=== PATIENT | female | born 1995 | race Caucasian/White ===

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

== ENCOUNTER 2023-11-25 15:12 | Inpatient (IN) | payer BC ==
[~2023-11-25] VITALS: Ht 170.2 cm; Wt 60.8 kg
[~2023-11-25 15:12] MED LIST: CIPRO 500MG TA500 MG PO; ZOFRAN ODT4 MG PO
[2023-11-25] MEDS ORDERED: Morphine 4 MG/ML VIAL IV PRN ×2 (17:00→20:00)
[2023-11-25] MEDS ORDERED: Ondansetron 4 MG/2 ML VIAL IV ONE (17:00)
[2023-11-25] MEDS ORDERED: LR 1,000 ML IV ONE (17:00)
[2023-11-25 17:22] LABS: BASO # 0.1 K/mm3 (0.0-0.2); BASO % 0.5 % (0.0-2.0); EOS % 0.2 % (0.0-4.0); GRAN # 11.3 K/mm3 (1.4-6.5); HEMATOCRIT 45.8 % (37.0-47.0); HEMOGLOBIN 15.5 g/dl (12.5-16.0); LYMPH # 1.1 K/mm3 (1.2-3.4); LYMPH % 8.1 % (20.0-51.0); MEAN CELL VOLUME 81 fl (80.0-100.0); MEAN CORPUSCULAR HEMOGLOBIN 27 pg (27-31); MEAN CORPUSCULAR HGB CONC 34 g/dl (33.0-37.0); MEAN PLATELET VOLUME 9.7 fl (7.4-10.4); MONO # 0.6 K/mm3 (0.1-0.6); MONO % 4.8 % (1.7-9.3); PLATELET COUNT 507 K/mm3 (130-400); RED BLOOD COUNT 5.68 M/mm3 (4.10-5.30); REDCELL DISTRIBUTION WIDTH-CV 13.5 % (11.5-14.5)
[2023-11-25 17:32] LABS: ALBUMIN 4.7 g/dL (3.5-5.0); BILIRUBIN,TOTAL 0.7 mg/dL (0.2-1.2); CALCIUM 10.5 mg/dL (8.4-10.2); CREATININE, serum 0.83 mg/dL (0.57-1.11); POTASSIUM 3.9 mEq/L (3.5-4.5); TOTAL PROTEIN 8.7 g/dl (6.2-8.1)
[2023-11-25] MEDS ORDERED: Iohexol 300 - 100 ML VIAL IV ONE (18:31)
[2023-11-25] MEDS ORDERED: NS 50 ML IV ONE (18:42)
[2023-11-25 19:02] LABS: COLLECTION METHOD CLEAN CATCH; URINE APPEARANCE Cloudy (CLEAR/HAZY); URINE BLOOD 1+ (NEGATIVE); URINE COLOR YELLOW (YELLOW); URINE GLUCOSE Negative (NEGATIVE); URINE KETONE 4+ (NEGATIVE); URINE NITRATE Negative (NEGATIVE); URINE PROTEIN(semi-quant) Negative (NEGATIVE); URINE UROBILINOGEN 0.2 E.U/dL (0.2-1.0)
[2023-11-25] MEDS ORDERED: Haloperidol Lactate 5 MG/ML VIAL IV ONE (19:30)
[2023-11-25] MEDS ORDERED: metroNIDAZOLE 100 ML IV ONE (19:45)
[2023-11-25] MEDS ORDERED: Pantoprazole 40 MG in NS 10 ML IV SCH (19:51)
[2023-11-25] MEDS ORDERED: Ondansetron 4 MG/2 ML VIAL IV PRN (20:00)
[2023-11-25] MEDS ORDERED: LR 1,000 ML IV SCH (20:00)
[2023-11-25] MEDS ORDERED: LORazepam 2 MG/ML 1 ML VIAL IV PRN (20:30)
[2023-11-25] MEDS ORDERED: IMURAN 50MG TAB50 MG PO (20:40)
[2023-11-25] MEDS ORDERED: ENTOCORT EC3 MG PO (20:41)
[2023-11-25] MEDS ORDERED: metroNIDAZOLE 100 ML IV SCH (21:00)
[2023-11-25] MEDS ORDERED: Metoprolol Tartrate 5 MG/5 ML VIAL IV PRN (21:30)
[2023-11-25 21:43] VITALS: BP 123/78; PULSE 108; TEMP 97.7
--- NOTE | 2023-11-25 21:48 | NUR ---
Pt. arrived to unit via w/c accompanied by ED RN. Pt. ambulated from chair to bed. Gait is steady. Pt. is on room air. NG tube to R nare at 61 cm. This nurse assessed NG tube was at correct marker before connecting to LIS. Physical assessment complete. Pt. is A&O x4. Pale in coloring, but warm and dry. Pt. is tachycardic at this time w/ HR at 110 bpm. monitor car operator in place. Pt's bowel sounds are audible in all quadrants, however R quadrants are quieter than the left quadrants. Pt. denies nausea at this time. All other findings WNL. Administered scheduled meds per JUN. IV site to L a/c is patent and dressing is CDI. Oriented pt to room and call light. No complaints or requests at this time.
[2023-11-25] MEDS ORDERED: ZOFRAN ODT4 MG PO (21:54)
[2023-11-26] VITALS (12 sets, daily range): BP systolic 103–116; BP diastolic 62–73; PULSE 81–105; TEMP 97.7–98.6
--- NOTE | 2023-11-26 05:49 | NUR ---
Pt. resting in bed since admission. NG tube at 61 cm to LIS. Approximately 150 mL dark red gastric contents. Pt. denies pain or nausea. Coloring has improved since initial assessment and pt. appears more energetic as well. Pt. is on room air and ambulates independently. No complaints or request at this time.
[2023-11-26 06:41] LABS: BASO % 0.5 % (0.0-2.0); EOS # 0.1 K/mm3 (0.0-0.7); EOS % 0.9 % (0.0-4.0); GRAN # 3.9 K/mm3 (1.4-6.5); GRAN % 71.2 % (42.2-75.2); LYMPH % 17.5 % (20.0-51.0); MEAN CELL VOLUME 81 fl (80.0-100.0); MEAN CORPUSCULAR HGB CONC 34 g/dl (33.0-37.0); MEAN PLATELET VOLUME 9.3 fl (7.4-10.4); MONO # 0.5 K/mm3 (0.1-0.6); MONO % 9.7 % (1.7-9.3); REDCELL DISTRIBUTION WIDTH-CV 13.7 % (11.5-14.5)
[2023-11-26 06:46] LABS: HEMOGLOBIN 11.4 g/dl (12.5-16.0); MEAN CORPUSCULAR HEMOGLOBIN 27 pg (27-31); PLATELET COUNT 306 K/mm3 (130-400)
[2023-11-26 07:03] LABS: CALCIUM 8.7 mg/dL (8.4-10.2); CREATININE, serum 0.68 mg/dL (0.57-1.11); POTASSIUM 3.8 mEq/L (3.5-4.5)
--- NOTE | 2023-11-26 07:37 | NUR ---
Pt laying in bed. Denies needs at this time. NG tube to LIS with dark fluid in tubing. Denies needs at this time. Call light in reach.
--- NOTE | 2023-11-26 08:20 | NUR ---
Pt laying in bed. A&Ox4. VSS. S1S2. Clear lungs on RA. ABd round, soft, non-tender with hypoactive bowel sounds. Palpable pulses in all extremities. NG tube at 61cm in R nare on LIS with dark brown fluid in tube. Tele on. No IV in L AC wiht LR at 150 cc/hr. No further needs. Call light in reach.
--- NOTE | 2023-11-26 09:20 | NUR ---
Radiology notified this RN, NG tube was sitting in Pt's esophagus and needed to be advanced about 8 cm. This housing assistant NG tube to 75 cm. Pt tolerated procedure well. NG tube on LIS. No further needs. Call light in reach.
--- NOTE | 2023-11-26 13:48 | NUR ---
[employer] met with patient and her , Jeff (ph#[phone]) to complete initial intake. Patient lives in [place], [place] and sees Dr. Stafford for primary care. Patient gets her medications from [facility] in [place]. Patient advised her insurance is through her father's employer. Patient is employed and works at [employer] in [place]. Patient has no DME needs and is independent with ADLS at this time. Patient does not have DPOA-HC and was not interested in completing one. Discharge Plan: Home
[2023-11-26] MEDS ORDERED: Benzonatate 100 MG CAP PO SCH (16:35)
[2023-11-26] MEDS ORDERED: Menthol Cough/Sore Throat LOZENGE MM PRN (16:45)
[2023-11-26] MEDS ORDERED: Phenol 1.4% Spray 180 ML BOTTLE MM PRN (17:15)
[2023-11-27] VITALS (13 sets, daily range): BP systolic 109–119; BP diastolic 68–77; PULSE 87–95; TEMP 98.1–98.7
--- NOTE | 2023-11-27 06:35 | NUR ---
Pt sleeping in bed. Call light in reach.
[2023-11-27 06:43] LABS: BASO % 0.2 % (0.0-2.0); EOS # 0.1 K/mm3 (0.0-0.7); EOS % 2.4 % (0.0-4.0); GRAN # 4.6 K/mm3 (1.4-6.5); GRAN % 76.9 % (42.2-75.2); LYMPH # 0.8 K/mm3 (1.2-3.4); LYMPH % 13.1 % (20.0-51.0); MEAN CELL VOLUME 82 fl (80.0-100.0); MEAN CORPUSCULAR HEMOGLOBIN 27 pg (27-31); MEAN CORPUSCULAR HGB CONC 33 g/dl (33.0-37.0); MEAN PLATELET VOLUME 9.1 fl (7.4-10.4); MONO # 0.4 K/mm3 (0.1-0.6); MONO % 7.1 % (1.7-9.3); PLATELET COUNT 246 K/mm3 (130-400); RED BLOOD COUNT 4.09 M/mm3 (4.10-5.30); REDCELL DISTRIBUTION WIDTH-CV 13.8 % (11.5-14.5)
[2023-11-27 06:45] LABS: HEMATOCRIT 33.5 % (37.0-47.0)
[2023-11-27 06:57] LABS: CALCIUM 8.8 mg/dL (8.4-10.2); CREATININE, serum 0.66 mg/dL (0.57-1.11); POTASSIUM 3.8 mEq/L (3.5-4.5)
--- NOTE | 2023-11-27 08:10 | NUR ---
Pt sitting up in bed. A&Ox4. VSS. S1S2 on tele. Clear lungs on RA. ABD flat, soft, non-tender with audible bowel sounds. NG tube at 75 cm on LIS with yellow drainage. NG tube in R nare. Palpable pulses in all extremities. IV in L AC patent. Pt denies pain, n/v. No further needs at this time. Call light in reach.
--- NOTE | 2023-11-27 13:53 | NUR ---
Clamped Pt's NG tube. Offerred clear liquids. Educated Pt to notify RN if starting to feel n/v, pain. No further needs. Call light in reach.
--- NOTE | 2023-11-27 20:34 | NUR ---
Patient is doing fine, assessed at this time, see shift assessment, denies pain or discomfort, denies N/V, still with IV infusing well on left antecubital, NG still clamped, denies further needs, call light and personal items within reach, will continue to monitor.
--- NOTE | 2023-11-27 23:50 | NUR ---
Patient resting in bed, looks comfortable, respirations even and unlabored.
[2023-11-28] VITALS (12 sets, daily range): BP systolic 103–121; BP diastolic 65–79; PULSE 82–96; TEMP 98–98.8
[2023-11-28 07:17] LABS: CREATININE, serum 0.66 mg/dL (0.57-1.11); POTASSIUM 3.9 mEq/L (3.5-4.5)
[2023-11-28 07:21] LABS: BASO % 0.4 % (0.0-2.0); EOS # 0.2 K/mm3 (0.0-0.7); EOS % 3.4 % (0.0-4.0); GRAN # 3.3 K/mm3 (1.4-6.5); GRAN % 69.5 % (42.2-75.2); HEMOGLOBIN 10.8 g/dl (12.5-16.0); LYMPH # 0.8 K/mm3 (1.2-3.4); LYMPH % 17.7 % (20.0-51.0); MEAN CELL VOLUME 83 fl (80.0-100.0); MEAN CORPUSCULAR HEMOGLOBIN 28 pg (27-31); MEAN CORPUSCULAR HGB CONC 34 g/dl (33.0-37.0); MEAN PLATELET VOLUME 9.5 fl (7.4-10.4); MONO # 0.4 K/mm3 (0.1-0.6); MONO % 8.4 % (1.7-9.3); PLATELET COUNT 262 K/mm3 (130-400); RED BLOOD COUNT 3.87 M/mm3 (4.10-5.30); REDCELL DISTRIBUTION WIDTH-CV 13.7 % (11.5-14.5)
--- NOTE | 2023-11-28 08:00 | NUR ---
PT AWAKE AND RESTING IN BED. SCHEDULED MEDS GIVEN PER eMAR. NG TUBE IN R NARE, CLAMPED. DENIES PAIN OR TENDERNESS IN ABDOMEN. GLASSES IN PLACE. PT DENIES PAIN. ALL NEEDS MET AT THIS TIME. CALL LIGHT WITHIN REACH.
[2023-11-28] MEDS ORDERED: D5 1/2 NS 1,000 ML IV SCH (09:00)
--- NOTE | 2023-11-28 18:16 | NUR ---
This nurse reveiwed all documentation completed by MARIA ESTHER Kirkpatrick. Agree with all assessments and notes.
--- NOTE | 2023-11-28 18:22 | NUR ---
PT AWAKE AND RESTING IN BED. DENIES PAIN. NG TUBE IN PLACE AND CLAMPED IN RIGHT NARE. NO FURTHER CONCERNS. CALL LIGHT WITHIN REACH.
--- NOTE | 2023-11-28 18:37 | NUR ---
NORMA Torres was notified of tachycardia. This RN went to [facility] on Pt. Pt was in bathroom, ambulating. Pt returned to NSR after sitting down.
--- NOTE | 2023-11-28 19:36 | NUR ---
Called Tam, the MICROBIOLOGY LAB ANALYST and made him aware that patient is having headache, received an order for tylenol.
[2023-11-28] MEDS ORDERED: Acetaminophen 500 MG TAB PO PRN (19:45)
--- NOTE | 2023-11-28 21:05 | NUR ---
Patient assessed at this time, see shift assessment, reports relief from headache, still with IV infusing well on left antecubital, D5NS at 100cc/hr, denies pain, N/V, NG still clamped, denies further needs, call light and personal items within reach, will continue to monitor.
[2023-11-29] VITALS (11 sets, daily range): BP systolic 103–115; BP diastolic 63–74; PULSE 80–116; TEMP 97.8–98.8
--- NOTE | 2023-11-29 05:42 | NUR ---
Patient had an uneventful night, denies need at this time, still with NG clamped on her right nare.
--- NOTE | 2023-11-29 06:35 | NUR ---
Pt sitting up in bed. Denies needs at this time. Call light in reach.
[2023-11-29 06:54] LABS: BASO % 0.5 % (0.0-2.0); EOS # 0.3 K/mm3 (0.0-0.7); EOS % 4.1 % (0.0-4.0); GRAN # 4.4 K/mm3 (1.4-6.5); GRAN % 71.4 % (42.2-75.2); HEMOGLOBIN 11.6 g/dl (12.5-16.0); LYMPH # 0.9 K/mm3 (1.2-3.4); LYMPH % 14.6 % (20.0-51.0); MEAN CELL VOLUME 80 fl (80.0-100.0); MEAN CORPUSCULAR HEMOGLOBIN 27 pg (27-31); MEAN CORPUSCULAR HGB CONC 34 g/dl (33.0-37.0); MEAN PLATELET VOLUME 9.4 fl (7.4-10.4); MONO # 0.6 K/mm3 (0.1-0.6); MONO % 9.2 % (1.7-9.3); PLATELET COUNT 255 K/mm3 (130-400); RED BLOOD COUNT 4.27 M/mm3 (4.10-5.30); REDCELL DISTRIBUTION WIDTH-CV 13.5 % (11.5-14.5)
[2023-11-29 07:04] LABS: HEMATOCRIT 34.2 % (37.0-47.0)
[2023-11-29 07:14] LABS: ANION GAP 10 mmol/L (7-16); CHLORIDE 107 mEq/L (98-107); CREATININE, serum 0.71 mg/dL (0.57-1.11); GLUCOSE 107 mg/dL (70-99); POTASSIUM 3.4 mEq/L (3.5-4.5); SODIUM 140 mEq/L (136-145)
[2023-11-29 07:15] LABS: BLOOD UREA NITROGEN < 5 mg/dL (7-19)
--- NOTE | 2023-11-29 07:33 | NUR ---
Pt laying in bed. A&Ox4. VSS. S1S2. Clear lungs on RA. ABd flat, soft, non-tender with audible bowel sounds. Per Pt, positive flatus. NG tube in R nare. NG tube at 62 cm. Pt requested not to advance tube back down, unless absolutely necessary. Discussed with Pt, if she begins to feel bloated, n/v, or increased pain in ABD, then we would need to advance tube. Palpable pulses in all extremities with 5/5 strength. IV in L AC, no issues, D5 1/2 NS running at 100 cc/hr. Pt denies pain, n/v, headache at this time. No further needs. Call light in reach.
[2023-11-29] MEDS ORDERED: D5 1/2 NS & 20 mEq KCl 1,000 ML IV SCH (09:30)
[2023-11-29 11:01] LABS: MAGNESIUM 1.9 mg/dL (1.6-2.6); PHOSPHOROUS 3.7 mg/dL (2.3-4.7)
--- NOTE | 2023-11-29 12:52 | NUR ---
This RN was notified by [employer]. Pt's HR increased to 130s-150s. Pt sitting in bed eating. Pt reported feeling some throat pain but nothing new. Administered throat spray for comfort. Notified provider. Per Dr Argueta, wait to see if HR decreases after Pt is done eating.
--- NOTE | 2023-11-29 16:00 | NUR ---
[employer] notified this RN of Pt's HR elevated into 150s. This RN checked on Pt. Pt was in restroom. Pt stated she felt fine. No further needs at this time.
--- NOTE | 2023-11-29 16:15 | NUR ---
Dental Practitioner notified this RN, Pt's HR elevated into 160s. Charge nurse, NORMA Toney checked on Pt. Pt was walking in room. No further needs.
--- NOTE | 2023-11-29 17:04 | NUR ---
Pt reported NG tube slipped out of nose earlier today when she was taking her shower. NG tube at 66 cm. Per X-Ray report from this afternoon, Pt's NG tube is still in the stomach. Upon this RN's assessment, NG tube in stomach. No need to advance to 75 cm.
--- NOTE | 2023-11-29 18:30 | NUR ---
report received from eliza kemp. pt sitting in bed on the phone. NG clamped. pt denies pain, N/V. call light in reach. all needs met at this time.
--- NOTE | 2023-11-29 22:03 | NUR ---
shift assessment complete, see documentation. pt tolerated hs meds well. pt denies pain. call light in reach. all needs met at this time.
[2023-11-30] VITALS (17 sets, daily range): BP systolic 98–120; BP diastolic 60–74; PULSE 92–107; TEMP 98.1–98.2
[2023-11-30] MEDS ORDERED: LR 1,000 ML IV SCH ×2 (06:00→12:45)
[2023-11-30] MEDS ORDERED: fentaNYL 50 MCG/ML 2 ML VIAL ONE ×2 (06:30→10:33)
[2023-11-30] MEDS ORDERED: Ondansetron 4 MG/2 ML VIAL ONE ×2 (06:31→11:59)
[2023-11-30] MEDS ORDERED: NS 20 ML IV ONE (06:31)
[2023-11-30] MEDS ORDERED: Lidocaine PF 2% (20 MG/ML) 5 ML VIAL ONE (06:31)
[2023-11-30] MEDS ORDERED: Rocuronium 50 MG/5 ML Multi-Dose VIAL ONE ×2 (06:31→09:07)
[2023-11-30] MEDS ORDERED: Glycopyrrolate 0.2 MG/ML 1 ML VIAL ONE (06:31)
[2023-11-30] MEDS ORDERED: Midazolam 2 MG/2 ML VIAL ONE (06:31)
[2023-11-30] MEDS ORDERED: NS 100 ML IV ONE (06:38)
--- NOTE | 2023-11-30 06:40 | NUR ---
PT OFF OF UNIT TO OR AT THIS TIME, VIA STRETCHER.
[2023-11-30 07:06] LABS: BASO % 0.8 % (0.0-2.0); EOS # 0.3 K/mm3 (0.0-0.7); EOS % 5.7 % (0.0-4.0); GRAN # 2.8 K/mm3 (1.4-6.5); GRAN % 59.6 % (42.2-75.2); HEMOGLOBIN 12.5 g/dl (12.5-16.0); LYMPH # 1.2 K/mm3 (1.2-3.4); LYMPH % 24.8 % (20.0-51.0); MEAN CELL VOLUME 80 fl (80.0-100.0); MEAN CORPUSCULAR HEMOGLOBIN 27 pg (27-31); MEAN CORPUSCULAR HGB CONC 34 g/dl (33.0-37.0); MEAN PLATELET VOLUME 9.2 fl (7.4-10.4); MONO # 0.4 K/mm3 (0.1-0.6); MONO % 8.9 % (1.7-9.3); PLATELET COUNT 266 K/mm3 (130-400); RED BLOOD COUNT 4.56 M/mm3 (4.10-5.30); REDCELL DISTRIBUTION WIDTH-CV 13.6 % (11.5-14.5)
[2023-11-30 07:07] LABS: HEMATOCRIT 36.6 % (37.0-47.0)
[2023-11-30 07:29] LABS: ANION GAP 9 mmol/L (7-16); CALCIUM 9.4 mg/dL (8.4-10.2); CHLORIDE 109 mEq/L (98-107); GLUCOSE 105 mg/dL (70-99); POTASSIUM 3.5 mEq/L (3.5-4.5); SODIUM 140 mEq/L (136-145)
[2023-11-30] MEDS ORDERED: metroNIDAZOLE 100 ML IV ONE (07:34)
[2023-11-30] MEDS ORDERED: Phenylephrine 10 MG/ML VIAL ONE (07:41)
[2023-11-30 07:42] LABS: CREATININE, serum 0.73 mg/dL (0.57-1.11)
[2023-11-30 07:46] LABS: BLOOD UREA NITROGEN < 5 mg/dL (7-19)
[2023-11-30] MEDS ORDERED: fentaNYL 50 MCG/ML 1 ML SYRINGE/VIAL [PACU/SDC ONLY] IV PRN (08:15)
[2023-11-30] MEDS ORDERED: droPERidol 2.5 MG/ML 2 ML VIAL IV PRN (08:15)
[2023-11-30] MEDS ORDERED: HYDROmorphone 1 MG/1 ML SYRINGE [PACU/SDC ONLY] IV PRN (08:15)
[2023-11-30] MEDS ORDERED: Ondansetron 4 MG/2 ML VIAL IV PRN ×2 (08:15→12:45)
[2023-11-30] MEDS ORDERED: Indocyanine Green 25 MG KIT IV ONE (09:04)
[2023-11-30] MEDS ORDERED: Ketorolac 30 MG/ML VIAL ONE (11:59)
[2023-11-30] MEDS ORDERED: metroNIDAZOLE 100 ML IV SCH ×2 (12:45→13:45)
[2023-11-30] MEDS ORDERED: Naloxone 0.4 MG/ML VIAL IV PRN (12:45)
[2023-11-30] MEDS ORDERED: oxyCODONE 5 MG TAB PO PRN (12:45)
--- NOTE | 2023-11-30 13:30 | NUR ---
PT BACK ONTO UNIT AT THIS TIME VIA STRETCHER.
--- NOTE | 2023-11-30 13:35 | NUR ---
PT AWAKE IN ROOM WITH (ALCIDES), MOTHER, AND FATHER AT BEDSIDE. C/O 2/[address] STRANGE CATHETER IN PLACE DRAINING CLEAR, YELLOW URINE. IV SITES IN R WRIST AND L ANTECUBITAL PATENT. EDUCATED PATIENT AND FAMILY ON NO STRAWS AND NO CARBONATION. PT AND FAMILY VERBALIZED UNDERSTANDING. ALL NEEDS MET AT THIS TIME.
[2023-11-30] MEDS ORDERED: Acetaminophen 500 MG TAB PO SCH (14:00)
[2023-11-30] MEDS ORDERED: Ibuprofen 600 MG TAB PO SCH (17:00)
--- NOTE | 2023-11-30 17:50 | NUR ---
[employer] notified this RN of increased HR: 130s. Pt was up walking with this nurse. Pt ambulated back to room and laying in bed to rest. HR returned to low 100s.
--- NOTE | 2023-11-30 17:56 | NUR ---
PT C/O OF BLEEDING AROUND LEFT ANTECUBITAL IV SITE. THIS NURSE ATTEMPT TO FLUSH SALINE BUT PT C/O OF PAIN. IV D/C. PT AWAKE IN BED WITH , ALCIDES AT BEDSIDE. NO FURTHER CONCERNS. CALL LIGHT WITHIN REACH.
--- NOTE | 2023-11-30 18:59 | NUR ---
report received from eliza kemp. pt resting in bed watching tv with at bedside. pt denies pain. call light in reach. all needs met at this time.
--- NOTE | 2023-11-30 19:30 | NUR ---
shift assessment complete, see documentation. pt slightly anxious when tele was lying on incision stating "i think it opened one incision". all incisions CDI underbandaids. explained to pt and pt now states she feels better. pt denies pain. call light in reach. all needs met at this time.
[2023-11-30] MEDS ORDERED: ceFAZolin 1 G in Water For Injection,Sterile 10 ML IV SCH (20:00)
[2023-11-30] MEDS ORDERED: Pantoprazole 40 MG in NS 10 ML IV SCH (21:00)
[2023-12-01] VITALS (10 sets, daily range): BP systolic 97–100; BP diastolic 61–66; PULSE 84–118; TEMP 98.1–98.6
--- NOTE | 2023-12-01 06:08 | NUR ---
mcdonough catheter removed, pt tolerated well.
[2023-12-01 06:42] LABS: BASO % 0.2 % (0.0-2.0); EOS # 0.1 K/mm3 (0.0-0.7); EOS % 0.6 % (0.0-4.0); GRAN # 6.6 K/mm3 (1.4-6.5); GRAN % 77.9 % (42.2-75.2); HEMOGLOBIN 11.2 g/dl (12.5-16.0); LYMPH # 1.1 K/mm3 (1.2-3.4); LYMPH % 12.6 % (20.0-51.0); MEAN CELL VOLUME 80 fl (80.0-100.0); MEAN CORPUSCULAR HEMOGLOBIN 27 pg (27-31); MEAN CORPUSCULAR HGB CONC 34 g/dl (33.0-37.0); MEAN PLATELET VOLUME 9.7 fl (7.4-10.4); MONO # 0.7 K/mm3 (0.1-0.6); MONO % 8.3 % (1.7-9.3); PLATELET COUNT 276 K/mm3 (130-400); RED BLOOD COUNT 4.12 M/mm3 (4.10-5.30); REDCELL DISTRIBUTION WIDTH-CV 13.8 % (11.5-14.5)
[2023-12-01 06:51] LABS: HEMATOCRIT 33.1 % (37.0-47.0)
[2023-12-01 06:56] LABS: ANION GAP 10 mmol/L (7-16); CHLORIDE 109 mEq/L (98-107); CREATININE, serum 0.72 mg/dL (0.57-1.11); GLUCOSE 98 mg/dL (70-99); POTASSIUM 3.6 mEq/L (3.5-4.5); SODIUM 139 mEq/L (136-145)
[2023-12-01 07:01] LABS: BLOOD UREA NITROGEN < 5 mg/dL (7-19)
--- NOTE | 2023-12-01 08:00 | NUR ---
SHIFT ASSESSMENT COMPLETE. VSS. PATIENT RESTING IN BED WATCHING TV AND AWAITING BREAKFAST. PATIENT HAVING SOME NAUSEA THIS AM SINCE NEW ANTIBIOTIC STARTED, PATIENT GIVEN ANTINAUSEA MEDICATION SEE EMAR. PATIENT HAS REQUEST AT THIS TIME. PATIENT HAS BEEN WALKING TO RESTROOM W/SBA. ADVISED PATIENT WE WILL TRY TO DO SOME WALKING OF THE HALLS TODAY, PATIENT AGREED. CALL LIGHT IN REACH.
--- NOTE | 2023-12-01 11:37 | NUR ---
PATIENT TOLERATED FULL LIQUID DIET, DIET ADVANCED TO LOW FIBER PER ORDERS TO ADVANCE TOLERATED.
--- NOTE | 2023-12-01 11:47 | NUR ---
PATIENT TOLERATING FULLS ADVISED PATIENT THAT WE WILL DO FULLS FOR LUNCH WELL AND THAT AFTER DR. WEISS SEES HERE WE CAN ADVANCE TO A LOW FIBER DIET HE APPROVES. PATIENT EXPRESSED UNDERSTANDING
--- NOTE | 2023-12-01 19:03 | NUR ---
report received from lidia kemp. pt resting in bed with at bedside. pt reporting previous PRN medication given has relieved pain and she is starting to feel better. pt reports being tired. call light in reach. all needs met at this time.
[2023-12-01] MEDS ORDERED: Thiamine 100 MG TAB PO SCH (21:00)
--- NOTE | 2023-12-01 21:09 | NUR ---
pt reporting 5/10 RLQ abd pain. scheduled tylenol administered per orders. pt also reporting acid reflux, scheduled protonix administered per orders. pt also reporting nausea, prn zofran administered per orders. shift assessment complete, see documentation. pt tolerated other hs meds well. call light in reach. all needs met at this time.
--- NOTE | 2023-12-01 22:06 | NUR ---
pt reporting increased abd pain rated 8/10, prn morphine administered per orders. pt also reporting one emesis episode and stating she no longer has nausea. call light in reach. all needs met at this time.
[2023-12-02] VITALS (13 sets, daily range): BP systolic 93–108; BP diastolic 62–72; PULSE 95–121; TEMP 97.7–98.8
[2023-12-02 06:21] LABS: HEMOGLOBIN 12.5 g/dl (12.5-16.0); MEAN CELL VOLUME 79 fl (80.0-100.0); MEAN CORPUSCULAR HEMOGLOBIN 27 pg (27-31); MEAN CORPUSCULAR HGB CONC 34 g/dl (33.0-37.0); MEAN PLATELET VOLUME 9.6 fl (7.4-10.4); PLATELET COUNT 275 K/mm3 (130-400); RED BLOOD COUNT 4.57 M/mm3 (4.10-5.30); REDCELL DISTRIBUTION WIDTH-CV 13.7 % (11.5-14.5)
[2023-12-02 06:26] LABS: HEMATOCRIT 36.3 % (37.0-47.0)
[2023-12-02 06:39] LABS: CALCIUM 8.7 mg/dL (8.4-10.2); CREATININE, serum 0.68 mg/dL (0.57-1.11); MAGNESIUM 1.3 mg/dL (1.6-2.6); POTASSIUM 3.6 mEq/L (3.5-4.5)
[2023-12-02] MEDS ORDERED: Magnesium Sulfate 4% 50 ML IV ONE (07:30)
[2023-12-02 07:47] LABS: BAND 49 % (0-10); LYMPHOCYTE 7 % (20.0-51.0); NEUTROPHILS 37 % (42.0-75.2)
[2023-12-02 07:49] LABS: PLATELET ESTIMATE NORMAL (NORMAL)
--- NOTE | 2023-12-02 07:52 | NUR ---
INT to right wrist burning with flush. INT removed and new IV started in right forearm. PT very quiet while making conversation. Encouraged her to walk in the halls every 2-3 hours. Pt weak at using incentive spirometer. Discussed her getting a shower today. No needs verbalized, call light within reach
[2023-12-02] MEDS ORDERED: Magnesium Sulfate 4 GM/50 ML IV SOLN IV SCH (09:00)
[2023-12-02] MEDS ORDERED: Multivitamin TAB PO SCH (09:00)
[2023-12-02] MEDS ORDERED: Propranolol 10 MG TAB PO SCH (09:00)
--- NOTE | 2023-12-02 09:02 | NUR ---
SW attended clinical rounding and was informed pt has not been OOB or walking. Dr. Harish Argueta and RN will have PT/OT meet with pt again to get her up. Mother was present during this rounding and verbalized understanding of her needing to move around. Discharge Plan: home
--- NOTE | 2023-12-02 10:04 | NUR ---
Pt very unmotivated and overall weak appearance. She does no communicate much, very short and simple. Discussed with pt about imporatance of activity/po intake. Pt only ate about 5-10% of breakfast. She did use restroom, hat was placed in toilet. Output is dallin in color, notified physician, no new orders. I have discussed new orders as far as medications with pt and her mom. Discussed pt with exec. creative director as well.
[2023-12-02] MEDS ORDERED: Magnesium Sulfate 2 GM/50 ML IV SOLN IV SCH (10:30)
--- NOTE | 2023-12-02 11:15 | NUR ---
Pt resting in bed, she reports feeling better. Discussed her ordering some lunch and then going for a walk before it arrives and then sitting in the chair to eat. pt was okay with this. Her mom remains present at this time. Plan for her to take shower this afternoon
--- NOTE | 2023-12-02 13:59 | NUR ---
Pt did take a short walk and is now resting in bed. Discussed her trying to take a nap and then getting a shower. PT was okay with this. Informed her to notify nursing so that we could cover her IV
[2023-12-02] MEDS ORDERED: D5 1/2 NS & 20 mEq KCl 1,000 ML IV SCH (16:45)
[2023-12-02] MEDS ORDERED: Magnesium Oxide 400 MG TAB PO SCH (17:00)
--- NOTE | 2023-12-02 19:00 | NUR ---
Pt did shower this afternoon and linens changed. Pt has had mom or sister her all day. Pt does have someone visiting at this time. Pt is in better spirits now than earlier in the day. She was able to eat some dinner and not having any complaints of feeling nauseated at this time
--- NOTE | 2023-12-02 19:30 | NUR ---
Pt. c/o nausea at 1900. Administered PRN zofran per JUN. Shift assessment complete. Pt. appears drowsy and is pale in coloring. During shift report she appeared more energetic than she does since c/o nausea. Pt. HR is tachycardic at this time. Bowel sounds audible in all quadrants and pt. endorses passing flatus. Surgical sites to abdomen are CDI. All other findings WNL. No complaints or request at this time.
--- NOTE | 2023-12-02 22:00 | NUR ---
Administered scheduled meds per JUN. Pt's BP was 93/62 during 1999 vitals. Provider notified and new orders received. Holding Inderal at this time per provider orders. Pt. reports persistent hiccups. Hiccups resolved w/ scheduled protonix.
[2023-12-03] VITALS (17 sets, daily range): BP systolic 99–116; BP diastolic 60–73; PULSE 103–114; TEMP 97.9–98.7
--- NOTE | 2023-12-03 | NUR ---
Pt. c/o 10/26 pain. Scheduled Motrin administered per JUN. Upon reassessment, pt. is resting in bed w/ eyes closed; respirations even and unlabored.
--- NOTE | 2023-12-03 04:50 | NUR ---
Patient called with c/o nausea post oxycodone. Zofran given per dr nair.
--- NOTE | 2023-12-03 05:54 | NUR ---
Pt. struggled w/ pain and nausea through the night. Pain was largely managed by scheduled analgesia, however pt did require PRN roxicodone this morning. Pt. reports improvement since roxicodone; stating pain is now rated 6/10. Pt. still appears pale in coloring and is complaining of nausea this morning.
[2023-12-03 06:40] LABS: HEMOGLOBIN 11.6 g/dl (12.5-16.0); MEAN CELL VOLUME 79 fl (80.0-100.0); MEAN CORPUSCULAR HEMOGLOBIN 28 pg (27-31); MEAN CORPUSCULAR HGB CONC 35 g/dl (33.0-37.0); MEAN PLATELET VOLUME 10.5 fl (7.4-10.4); PLATELET COUNT 285 K/mm3 (130-400); RED BLOOD COUNT 4.21 M/mm3 (4.10-5.30); REDCELL DISTRIBUTION WIDTH-CV 13.6 % (11.5-14.5)
[2023-12-03 06:47] LABS: HEMATOCRIT 33.4 % (37.0-47.0)
[2023-12-03 07:15] LABS: CALCIUM 8.5 mg/dL (8.4-10.2); CREATININE, serum 0.65 mg/dL (0.57-1.11); MAGNESIUM 1.8 mg/dL (1.6-2.6); PHOSPHOROUS 1.7 mg/dL (2.3-4.7)
[2023-12-03] MEDS ORDERED: traMADol 50 MG TAB PO PRN (07:30)
--- NOTE | 2023-12-03 08:00 | NUR ---
SHIFT ASSESSMENT COMPLETE. PATIENT IS STILL RUNNING TACHICARDIC HR 114 BPM RESTING. PATIENT COMPLIANING OF NAUSEA THIS AM DUE TO OXYCODONE GIVEN BY WOMENS VOLLEYBALL COACH NURSE, PATIENT RECEIVED ZOFRAN WELL AND STATES IT IS SUBSIDING. ALL MORNING MEDS GIVEN ORDERED. PATIENT STATES PAIN 1/10 AND TOLERABLE. PATIENT HAS NO OTHER NEEDS AT THIS TIME. CALL LIGHT IN REACH.
[2023-12-03 08:30] LABS: BAND 31 % (0-10); EOSINOPHIL 5 % (0-4); LYMPHOCYTE 2 % (20.0-51.0)
[2023-12-03] MEDS ORDERED: D5NS & 20 mEq KCl 1,000 ML IV SCH ×2 (08:30→19:15)
[2023-12-03 08:36] LABS: NEUTROPHILS 58 % (42.0-75.2); PLATELET ESTIMATE NORMAL (NORMAL)
[2023-12-03 08:37] LABS: BURR CELLS 2+
--- NOTE | 2023-12-03 09:00 | NUR ---
PATIENT CALLED STATING SHE IS HAVING NAUSEA AFTER THE SODIUM PHOSPHATE BEGIAN INFUSING. WHEN THIS NURSE WALKED IN TO CHECK ON PATIENT SHE BEGAN VOMITING, CONTACTED HOSPITALIST AND GOT A NOW ORDER FOR ZOFRAN. ZOFRAN GIVEN ORDERED.
--- NOTE | 2023-12-03 09:30 | NUR ---
PATIENT CALLED STATING SHE IS THROWING UP AGIAN, CONTACTED HOSPITALIST AGAIN AND GOT ORDER TO SEND PATIENT DOWN FOR A SCAN OF ABD./PELVIS.
[2023-12-03] MEDS ORDERED: Ondansetron 4 MG/2 ML VIAL IV ONE (10:15)
[2023-12-03] MEDS ORDERED: Iohexol 300 - 100 ML VIAL IV ONE (11:55)
[2023-12-03] MEDS ORDERED: NS 100 ML IV SCH (11:56)
[2023-12-03 12:44] LABS: COLLECTION METHOD CLEAN CATCH
[2023-12-03 12:58] LABS: PH 5.5 (5.0-8.5); URINE APPEARANCE CLEAR (CLEAR/HAZY); URINE BLOOD NEGATIVE (NEGATIVE); URINE COLOR Dark Yellow (YELLOW); URINE GLUCOSE NEGATIVE (NEGATIVE); URINE KETONE NEGATIVE (NEGATIVE); URINE NITRATE NEGATIVE (NEGATIVE); URINE PROTEIN(semi-quant) 2+ (NEGATIVE)
[2023-12-03 13:30] LABS: URINE RBC NONE SEEN /hpf (0-2); URINE WBC 0-2 /hpf (0-2)
[2023-12-03] MEDS ORDERED: LORazepam 2 MG/ML 1 ML VIAL IV ONE (13:45)
[2023-12-03] MEDS ORDERED: LR 1,000 ML IV SCH ×2 (14:45→15:30)
[2023-12-03] MEDS ORDERED: Lidocaine PF 2% (20 MG/ML) 5 ML VIAL ONE (15:52)
[2023-12-03] MEDS ORDERED: Succinylcholine PF 200 MG/10 ML SYRINGE IV ONE (15:52)
[2023-12-03] MEDS ORDERED: fentaNYL 50 MCG/ML 2 ML VIAL ONE ×2 (15:52→18:49)
[2023-12-03] MEDS ORDERED: Midazolam 2 MG/2 ML VIAL ONE (15:52)
[2023-12-03] MEDS ORDERED: Rocuronium 50 MG/5 ML Multi-Dose VIAL ONE (15:58)
[2023-12-03] MEDS ORDERED: TPN (Clinimix-E 8%/14%) 1,000 ML IV SCH (16:00)
--- NOTE | 2023-12-03 16:11 | NUR ---
PATIENT LEFT FLOOR FOR SURGERY.
[2023-12-03] MEDS ORDERED: dexAMETHasone 10 MG/ML VIAL ONE (16:48)
[2023-12-03] MEDS ORDERED: LR 1,000 ML IV ONE ×2 (17:19)
[2023-12-03] MEDS ORDERED: Ondansetron 4 MG/2 ML VIAL IV PRN ×2 (18:00→19:15)
[2023-12-03] MEDS ORDERED: fentaNYL 50 MCG/ML 1 ML SYRINGE/VIAL [PACU/SDC ONLY] IV PRN ×2 (18:00)
[2023-12-03] MEDS ORDERED: hydrALAZINE 20 MG/ML 1 ML VIAL IV PRN (18:00)
[2023-12-03] MEDS ORDERED: Meperidine 50 MG/ML 1 ML VIAL IV PRN (18:00)
[2023-12-03] MEDS ORDERED: Insulin Lispro (HumaLOG) SQ SCH (18:00)
[2023-12-03] MEDS ORDERED: HYDROmorphone 1 MG/1 ML SYRINGE [PACU/SDC ONLY] IV PRN (18:00)
[2023-12-03] MEDS ORDERED: droPERidol 2.5 MG/ML 2 ML VIAL IV PRN (18:00)
[2023-12-03] MEDS ORDERED: HYDROmorphone 0.5 MG/0.5 ML SYRINGE IV PRN (19:15)
[2023-12-03] MEDS ORDERED: Naloxone 0.4 MG/ML VIAL IV PRN (19:15)
--- NOTE | 2023-12-03 20:07 | NUR ---
Report received from NORMA Brown via telephone.
--- NOTE | 2023-12-03 20:15 | NUR ---
Pt. returned to unit via bed w/ NORMA Brown. Pt. arrived on room air. NG tube in place and SCDs applied. Per RN, pt's pain raised from 3/10 to 4/10 during transfer. Post-op vitals initiated. Shift assessment complete. Pt. is A&O x4, but appears drowsy. Although her skin is warm and dry, she is pale in coloring and appears frail. Lung sounds are clear across all phan. Respirations are shallow and bradypneic at 12 resp/min. Pt. returned w/ large midline incision to abdomen. Midline is stapled and dressed w/ gauze. Dressings CDI. She also retuned w/ a small incision w/ 2 crystal to the LUQ. This incision is open to air- crystal are intact and edges well approximated. Pt. has 4x lap sites and a transverse incision that are all open to air and CDI. Bowel sounds are present, but hypoactive. NG tube is 16fr to LIS w/ scant amount of green gastric contents in suction tubing. Pt. denies nausea. Colostomy to LLQ w/ small amount of serosanguinous drainage in bag. Stoma is pink. Pt. returned w/ central line to L subclavian that is covered w/ occlusive dressing. Dressing CDI. No further outstanding findings. During assessment, pt appeared sad, stating, "this is a tragedy." Her parents and are at bedside providing emotional support. Pt. requests that her can stay the night; this nurse and RN allowed pt's to stay. RN is managing pt's central line and administering IV meds per JUN. This nurse and RN will continue to monitor pt.
--- NOTE | 2023-12-03 21:00 | NUR ---
Patient started on IV fluids, TPN, and ABX per orders. All running to central line to left chest. Explained mediations to patient and family. Aware of blood sugar checks every 6 hours while on TPN. All questions answered. Patient in bed with call light within reach.
--- NOTE | 2023-12-03 21:35 | NUR ---
Patient given PRN Morphine for level 7 pain as requested. Explained that a second dose could be given if it was not effective, and to call if needed. Voices understanding. Given ice chips as requested.
[2023-12-04] VITALS (19 sets, daily range): BP systolic 109–127; BP diastolic 58–78; PULSE 100–135; TEMP 97.9–100.3
--- NOTE | 2023-12-04 01:11 | NUR ---
cd technician called to report pt had been tachycardic since return to unit w/ HR ranging from 110-120 bpm, and inquired whther this was new for the pt. Informed electromedical equipment technician that pt. had been tachycardic since being admitted. Pt. is resting in bed, respirations even and unlabored at this time.
[2023-12-04 03:14] LABS: HEMOGLOBIN 10.8 g/dl (12.5-16.0); MEAN CELL VOLUME 81 fl (80.0-100.0); MEAN CORPUSCULAR HEMOGLOBIN 28 pg (27-31); MEAN CORPUSCULAR HGB CONC 34 g/dl (33.0-37.0); MEAN PLATELET VOLUME 9.3 fl (7.4-10.4); RED BLOOD COUNT 3.93 M/mm3 (4.10-5.30)
[2023-12-04 03:17] LABS: HEMATOCRIT 31.7 % (37.0-47.0); PLATELET COUNT 386 K/mm3 (130-400)
[2023-12-04 03:31] LABS: CALCIUM 8.3 mg/dL (8.4-10.2); CREATININE, serum 0.63 mg/dL (0.57-1.11); POTASSIUM 4.2 mEq/L (3.5-4.5)
[2023-12-04 03:41] LABS: BAND 6 % (0-10); LYMPHOCYTE 2 % (20.0-51.0); NEUTROPHILS 91 % (42.0-75.2); PLATELET ESTIMATE NORMAL (NORMAL)
[2023-12-04 03:48] LABS: MAGNESIUM 1.7 mg/dL (1.6-2.6); PHOSPHOROUS 1.9 mg/dL (2.3-4.7)
--- NOTE | 2023-12-04 06:12 | NUR ---
This nurse gave PRN Morphine for pain as requested during the night. Continues on IV fluids, ABX, and TPN per orders. In bed with call light within reach. remains at bedside.
--- NOTE | 2023-12-04 06:34 | NUR ---
Pt. c/o pain through the night. Pain managed w/ morphine per JUN. RN managed all IV medications. Pt. did not require insulin at any point during the night. NG to LIS at 62 cm w/ green gastric contents. Colostomy only contained small amount of serosanguinous drainage through the night. Pt's at bedside. No request at this time.
[2023-12-04] MEDS ORDERED: Dextrose 50% Water 25 GM/50 ML SYRINGE IV PRN (08:45)
[2023-12-04] MEDS ORDERED: Dextrose (Glucose) 15 GM (4 x 3.75 GM) Chewable TABLET PACK PO PRN (08:45)
[2023-12-04] MEDS ORDERED: Glucagon 1 MG VIAL IM PRN (08:45)
[2023-12-04] MEDS ORDERED: Pantoprazole 40 MG in NS 10 ML IV SCH (09:00)
--- NOTE | 2023-12-04 09:00 | NUR ---
PATIENT GOT UP AND WALKED ABOUT 20FT IN HALLWAY. PATIENT TOLERATED WALK OK HAD PAIN AND HR JUMPED TO 165BPM. REMINDED PATIENT TO TAKE SLOW DEEP BREATHS WHEN UP TO HELP HR NOT INCREASE MUCH. PATIENT EXPRESSED UNDERSTANDING
--- NOTE | 2023-12-04 09:00 | NUR ---
SHIFT ASSESSMENT COMPLETE. PATIENT AWAKE IN BED W/ AT BEDSIDE. ALL MORNING MEDS GIVEN ORDERED. PATIENT STATES PAIN 7/10 TO ABD. PAIN MEDS GIVEN ORDERED. NG TUBE IN PLACE AT 62 W/ GREEN DRAINAGE. COLOSTOMEYBAG IN PLACE W/MIN BLOOD NO BILE DRAINAGE AT THIS TIME. PATIENT INTAKING SIPS OF WATER AND ICE CHIPS NEEDED. PAITENT HAS NO OTHER NEEDS AT TIME. CALL LIGHT IN REACH.
[2023-12-04] MEDS ORDERED: Celecoxib 100 MG CAP PO SCH (09:10)
[2023-12-04] MEDS ORDERED: oxyCODONE 5 MG TAB PO PRN (09:15)
[2023-12-04] MEDS ORDERED: Acetaminophen 500 MG TAB PO SCH (11:45)
[2023-12-04] MEDS ORDERED: Morphine PCA 1 MG/ML 30 ML SYRINGE IV SCH (12:00)
[2023-12-04] MEDS ORDERED: Naloxone 0.4 MG/ML VIAL IV PRN (12:00)
[2023-12-04] MEDS ORDERED: diphenhydrAMINE 50 MG/ML 1 ML VIAL IV PRN (12:00)
[2023-12-04] MEDS ORDERED: D5W 1,000 ML IV SCH (12:45)
[2023-12-04] MEDS ORDERED: Multivitamins 1 VIAL,Folic Acid 1 MG,Thiamine 200 MG in TPN (Clinimix-E 8%/14%) 1,000 ML IV SCH (16:00)
--- NOTE | 2023-12-04 18:14 | NUR ---
INT REMOVED FROM RT FOREARM. CATHETER INTACK AND PATIENT TOLERATED WELL.
--- NOTE | 2023-12-04 18:45 | NUR ---
PATIENT RESTING IN BED SITTING UP WITH TV OFF WITH AT BEDSIDE WITH NO ACUTE DISTRESS NOTED. PATIENT ON ROOM AIR. TPN AND LIPIDS INFUSING INTO BROWN LUMEN OF THE LEFT SUBCLAVIAN CENTRAL LINE. D5W WITH MORPHINE LITHOPONE MILL WORKER INFUSING INTO WHITE LUMEN OF CENTRAL LINE. BLUE LUMEN CLAMPED AT THIS TIME. NG TO LEFT NARES INTACT AND DRAINING GREEN BILE LIKE FLUID WHILE ON LOW INTERMITTENT SUCTION. STRANGE CATH INTACT, PATENT, AND DRAINING CLEAR YELLOW URINE. BEDSIDE REPORT COMPLETED WITH MARINA RN AT THIS TIME. PATIENT DENIES ANY NEEDS. BED IN LOW POSITION WITH WHEELS LOCKED WITH RAILS UP X3 AND CALL LIGHT WITHIN REACH.
--- NOTE | 2023-12-04 20:32 | NUR ---
PATIENT RESTING WITH EYES CLOSED IN BED SITTING UP WITH TV OFF WITH AT BEDSIDE WITH NO ACUTE DISTRESS NOTED. PATIENT EASILY AROUSED. PATIENT ON ROOM AIR. TPN AND LIPIDS INFUSING INTO BROWN LUMEN OF THE LEFT SUBCLAVIAN CENTRAL LINE. D5W WITH MORPHINE STEAM TRAP MAN INFUSING INTO WHITE LUMEN OF CENTRAL LINE. BLUE LUMEN CLAMPED AT THIS TIME. NG TO LEFT NARES INTACT AND DRAINING GREEN BILE LIKE FLUID WHILE ON LOW INTERMITTENT SUCTION. STRANGE CATH INTACT, PATENT, AND DRAINING CLEAR YELLOW URINE. ASSESSMENT AND MEDICATION ADMINISTRATION COMPLETED AT THIS TIME. PATIENT TOLERATED WELL. ZOSYN INFUSING INTO BLUE LUMEN WITH NO COMPLICATIONS NOTED. PATIENT DENIES ANY NEEDS. BED IN LOW POSITION WITH WHEELS LOCKED WITH RAILS UP X3 AND CALL LIGHT WITHIN REACH.
[2023-12-05] VITALS (16 sets, daily range): BP systolic 109–131; BP diastolic 66–95; PULSE 70–146; TEMP 97.9–103.1
--- NOTE | 2023-12-05 00:16 | NUR ---
HOSPITALIST STEFF FLOWERS CALLED ABOUT PATIENT TEMPERATURE OF 103.1 AND HEART RATE OF 138. ORDER RECIEVED TO DO BLOOD CULTURES AND NOTIFY DR. MUSA FROM SURGERY.
--- NOTE | 2023-12-05 00:30 | NUR ---
DR. MUSA CALLED FOR PATIENT TEMPERATURE OF 103.1 AND HEART RATE OF 138. BP 114/74, RESPIRATIONS 20, AND O2 SAT 96. ORDER RECIEVED FOR TYLENOL 650 MG PO PRN FOR FEVER EVERY 6 HOURS AND ATIVAN 0.5 MG PO FOR ANXIETY PRN EVERY 6 HOURS. ORDER ALSO GIVEN TO CLAMP NG TUBE FOR 30 MINUTES TO 1 HOUR AFTER TAKING PO MEDICATIONS.
--- NOTE | 2023-12-05 00:38 | NUR ---
HOSPITALIST STEFF FLOWERS CALLED BACK TO SAY SURGICAL ORDERED TYLENOL, ATIVAN, AND ABILITY TO CLAMP NG TUBE FOR MEDICATION ADMINISTRATION, ALONG WITH NO CHANGING ANITBIOTICS AT THIS TIME.
[2023-12-05] MEDS ORDERED: NS 1,000 ML IV SCH (00:45)
[2023-12-05] MEDS ORDERED: Acetaminophen 325 MG TAB PO PRN (00:45)
[2023-12-05] MEDS ORDERED: LORazepam 0.5 MG TAB PO PRN (00:45)
[2023-12-05 06:55] LABS: CALCIUM 7.7 mg/dL (8.4-10.2); CREATININE, serum 0.55 mg/dL (0.57-1.11); MAGNESIUM 1.7 mg/dL (1.6-2.6); PHOSPHOROUS 1.7 mg/dL (2.3-4.7); POTASSIUM 3.5 mEq/L (3.5-4.5)
--- NOTE | 2023-12-05 07:25 | NUR ---
Pt resting in bed, spouse at bedside. Pt reports feeling "ok" but just feels hot. Temp 98.9 at this time, all other vitals compare to what they have been over the last several days. Pt is tachy around 130, tele on. Checked all lines and tubes at this time. No other needs, call light within reach
--- NOTE | 2023-12-05 08:46 | NUR ---
Pt resting in bed at this time. Recheck of respirations are 20 at this time.
[2023-12-05] MEDS ORDERED: metroNIDAZOLE 100 ML IV SCH (09:30)
--- NOTE | 2023-12-05 10:10 | NUR ---
Full assessment completed at this time. NG was advanced earlier from approximately 50cm to 61cm. No additional output up to this point. PT reports having pain 6/10, but states that she is hesitant to use it because she doesn't want it to slow her bowels down. There is some reddish liquid from ostomy at this time. Abd is slightly rounded from her baseline and is firm to touch. Spouse remains at bedside. All questions answered, no additional needs
[2023-12-05 10:33] LABS: MEAN CELL VOLUME 81 fl (80.0-100.0); MEAN CORPUSCULAR HGB CONC 34 g/dl (33.0-37.0); MEAN PLATELET VOLUME 8.8 fl (7.4-10.4); PLATELET COUNT 312 K/mm3 (130-400); RED BLOOD COUNT 3.48 M/mm3 (4.10-5.30)
[2023-12-05 10:42] LABS: HEMOGLOBIN 9.4 g/dl (12.5-16.0); MEAN CORPUSCULAR HEMOGLOBIN 27 pg (27-31)
[2023-12-05 10:50] LABS: ALBUMIN 1.6 g/dL (3.5-5.0); BILIRUBIN,TOTAL 0.3 mg/dL (0.2-1.2); CALCIUM 7.9 mg/dL (8.4-10.2); CREATININE, serum 0.57 mg/dL (0.57-1.11); POTASSIUM 3.7 mEq/L (3.5-4.5); TOTAL PROTEIN 4.9 g/dl (6.2-8.1)
[2023-12-05] MEDS ORDERED: Metoprolol Tartrate 5 MG/5 ML VIAL IV SCH (11:00)
[2023-12-05] MEDS ORDERED: Potassium Chloride 100 ML IV SCH (11:00)
[2023-12-05] MEDS ORDERED: *Potassium Replacement Protocol MC SCH (11:00)
[2023-12-05] MEDS ORDERED: Magnesium Sulfate 4% 50 ML IV ONE (11:00)
[2023-12-05] MEDS ORDERED: Acetaminophen Oral Susp 325 MG/10.15 ML UD PO PRN (11:15)
[2023-12-05] MEDS ORDERED: LORazepam 2 MG/ML 1 ML VIAL IV PRN (11:15)
[2023-12-05 11:16] LABS: BAND 8 % (0-10); EOSINOPHIL 1 % (0-4); LYMPHOCYTE 7 % (20.0-51.0); NEUTROPHILS 77 % (42.0-75.2)
[2023-12-05 11:18] LABS: PLATELET ESTIMATE NORMAL (NORMAL)
[2023-12-05 11:24] LABS: METAMYELOCYTE 2 % (0-0)
[2023-12-05] MEDS ORDERED: Potassium Chloride 20 mEq/100 mL IV Soln IV SCH (11:30)
--- NOTE | 2023-12-05 11:43 | NUR ---
PATIENT RUNNING TEMP OF 103.0, TYLENOL GIVEN ORDERED. HR 137BPM. PATIENT MEWS SCORE 6. CONTACTED HOSPITALIST AND REPORTED TEMP, HR AND MEWS SCORE. RECEIVED NO NEW ORDERS AT THIS TIME. WILL RECHECK TEMP IN ONE HOUR.
[2023-12-05] MEDS ORDERED: SODIUM PHOSPHATE IV SCH (12:00)
[2023-12-05] MEDS ORDERED: [UNRECOGNIZED DRUG - OTHER] IV SCH (12:00)
[2023-12-05] MEDS ORDERED: NS IV SCH (12:00)
--- NOTE | 2023-12-05 14:03 | NUR ---
Pt resting in bed at this time. She did get up and walk in the halls with PT. NG was clamped earlier this am, no complaints of nausea at this time. Assisted pt back to bed around 1300. She sat up in the chair for a couple hours. Pts spouse at bedside at this time. Pt continues to be very sleepy, but does wake easily. Using TYPEWRITERS FUNCTIONAL TESTER as needed for pain management
[2023-12-05] MEDS ORDERED: Multivitamins 1 VIAL,Folic Acid 1 MG,Thiamine 200 MG in TPN (Clinimix-E 8%/14%) 1,000 ML IV SCH (16:00)
--- NOTE | 2023-12-05 19:00 | NUR ---
SHIFT ASSESSMENT COMPLETE. PATIENT TACHICARDIC HR 137BPM. TEMP 99.5. PATIENT EXPRESSES FEELING HOT BLANKETS REMOVED. PAIN 6/10 PATIENT HAS RESCUE INSTRUCTOR PUMP FOR PAIN MANAGMENT. ABD DISTENED, DR. MUSA WAS IN THE ROOM AND ORDERED LOW INT. SUCTIONING, THIS NURSE HOOKED PATIENT BACK UP, GREEN OUTPUT BEGAN SUCTIONING. WILL CHECK AMOUTN IN 30MIN TO [address] MUSA. PATIENT IS NOW RESTING. ALL NIGHT IV MEDS GIVEN ORDERED AND ALL PO MEDS HELD DUE TO NG TUBE AT THIS TIME. PATIENT HAS MOTHER AT BEDSIDE AND HAS RECEIVED PERMISSION FOR MOTHER TO STAY OVERNIGHT TO HELP WITH ANXIETY. CALL LIGHT IS IN REACH.
[2023-12-05] MEDS ORDERED: D5W 1,000 ML IV SCH (19:45)
[2023-12-05] MEDS ORDERED: HYDROmorphone PCA 0.2 MG/ML 30 ML VIAL IV SCH (19:45)
[2023-12-05] MEDS ORDERED: Naloxone 0.4 MG/ML VIAL IV PRN (19:45)
[2023-12-05] MEDS ORDERED: diphenhydrAMINE 25 MG CAP PO PRN (19:45)
[2023-12-05] MEDS ORDERED: diphenhydrAMINE 50 MG/ML 1 ML VIAL IV PRN (19:45)
[2023-12-05 20:30] LABS: HEMOGLOBIN 8.8 g/dl (12.5-16.0); MEAN CELL VOLUME 79 fl (80.0-100.0); MEAN CORPUSCULAR HEMOGLOBIN 28 pg (27-31); MEAN CORPUSCULAR HGB CONC 35 g/dl (33.0-37.0); MEAN PLATELET VOLUME 8.4 fl (7.4-10.4); PLATELET COUNT 273 K/mm3 (130-400); RED BLOOD COUNT 3.17 M/mm3 (4.10-5.30); REDCELL DISTRIBUTION WIDTH-CV 13.7 % (11.5-14.5)
[2023-12-05 20:46] LABS: CALCIUM 7.4 mg/dL (8.4-10.2); CREATININE, serum 0.52 mg/dL (0.57-1.11); POTASSIUM 3.6 mEq/L (3.5-4.5)
[2023-12-05] MEDS ORDERED: Sennosides/Docusate 8.6-50 MG TAB PO SCH (21:00)
[2023-12-06] VITALS (578 sets, daily range): BP systolic 104–121; BP diastolic 65–79; PULSE 102–137; TEMP 98.6–101; O2SAT 72–100
--- NOTE | 2023-12-06 00:36 | NUR ---
RECHECKED PATIENTS TEMP. 101.0
--- NOTE | 2023-12-06 01:39 | NUR ---
TELE CALLED STATING PATIENTS HR KEEPS JUMPING FROM 140'S TO HIGH 150'S. CONTACTED HOSPITALIST AND RECEIVED ORDER TO GIVE PATIENT A 1L FLUID BOLUS.
[2023-12-06] MEDS ORDERED: NS 1,000 ML IV ONE (02:00)
--- NOTE | 2023-12-06 02:00 | NUR ---
HOSPITALIST ASSESSED PATIENT ABD STILL DISTENED AND PATIENT PALE AND CLAMMY, ORDERS TO SEND PATIENT DOWN FOR A CT.
[2023-12-06] MEDS ORDERED: Ibuprofen 400 MG TAB PO PRN (02:15)
--- NOTE | 2023-12-06 02:30 | NUR ---
PATIENT TAKEN DOWN TO CT.
[2023-12-06] MEDS ORDERED: Iohexol 300 - 100 ML VIAL IV ONE (02:45)
[2023-12-06] MEDS ORDERED: NS 50 ML IV SCH (02:45)
--- NOTE | 2023-12-06 03:53 | NUR ---
CT RESULTS REVIEWED BY HOSPITALIST, ORDERS TO TAKE PATIENT DOWN TO ICU FOR CLOSER MONITORING. AWAITING BED FOR PATIENT
[2023-12-06] MEDS ORDERED: Fluconazole 400 MG/200 ML IV SOLN IV SCH (04:00)
[2023-12-06 04:43] LABS: MEAN CELL VOLUME 79 fl (80.0-100.0); MEAN CORPUSCULAR HGB CONC 34 g/dl (33.0-37.0); MEAN PLATELET VOLUME 8.7 fl (7.4-10.4); PLATELET COUNT 283 K/mm3 (130-400); RED BLOOD COUNT 3.31 M/mm3 (4.10-5.30); REDCELL DISTRIBUTION WIDTH-CV 13.8 % (11.5-14.5)
[2023-12-06] MEDS ORDERED: Heparin 5,000 UNITS/ML 1 ML VIAL IV ONE (04:45)
[2023-12-06] MEDS ORDERED: Heparin/D5W 250 ML IV SCH (04:45)
[2023-12-06] MEDS ORDERED: Heparin 5,000 UNITS/ML 1 ML VIAL IV PRN (04:45)
[2023-12-06 04:49] LABS: HEMATOCRIT 26.2 % (37.0-47.0); MEAN CORPUSCULAR HEMOGLOBIN 27 pg (27-31)
[2023-12-06 05:04] LABS: ALBUMIN 1.4 g/dL (3.5-5.0); BILIRUBIN,TOTAL 0.6 mg/dL (0.2-1.2); C-REACTIVE PROTEIN 20.68 mg/dL (0.00-0.50); CALCIUM 7.2 mg/dL (8.4-10.2); CREATININE, serum 0.54 mg/dL (0.57-1.11); MAGNESIUM 1.6 mg/dL (1.6-2.6); PHOSPHOROUS 2.2 mg/dL (2.3-4.7); POTASSIUM 3.9 mEq/L (3.5-4.5); TOTAL PROTEIN 4.5 g/dl (6.2-8.1)
--- NOTE | 2023-12-06 05:11 | NUR ---
Received report from surgical nurse, Quita.
[2023-12-06 05:24] LABS: BAND 7 % (0-10); EOSINOPHIL 1 % (0-4); LYMPHOCYTE 11 % (20.0-51.0); NEUTROPHILS 77 % (42.0-75.2); OVALOCYTES 1+; PLATELET ESTIMATE NORMAL (NORMAL)
--- NOTE | 2023-12-06 05:40 | NUR ---
Patient arrives to ICU 7 via medical bed. Patient is alert and oriented upon arrival. She is able to stand and pivot from medical to ICU bed. Gait steady. Initial HR of 113 with oral temp of 99.4F; all other vitals within normal limits. She arrives receiving 4L oxygen via nasal cannula, tolerating well. Arrives receiving IVF, TPN, and dilaudid CHILD ATTENDANT. NG in place to left nare located at 60cm. NG placed to LIS upon arrival to unit; green drainage noted. Patient reports some abdominal discomfort but that it is tolerable at this time due to CHILD ATTENDANT. Per report from Quita, patient has 5 lap sites. Upon assessment, only 2 lap sites are visible, both on the left side of abdomen. One site is within the LUQ and is CDI; no dressing present but site is closed with crystal. The second site is within the LLQ and is also CDI; no dressing present and site is closed with skin glue. The remaining lap sites are covered by patient's midline incision dressing. Midline dressing is CDI; no shadowing apparent. Left side of dressing is somewhat lifted as it overlaps with patient's ostomy. Scant serosanguineous drainage noted to the gauze beneath that left edge of midline dressing. Ostomty stoma is pink; serosanguineous drainage noted in drainage bag.
--- NOTE | 2023-12-06 06:07 | NUR ---
PATIENT TRANSFERED TO ICU REPORT GIVEN TO NORMA SHER. FAMILY WAITING IN WAITING ROOM.
--- NOTE | 2023-12-06 07:00 | NUR ---
Report received from NORMA Murray; patient currently laying in bed with TPN, heparin, NS, and a dilaudid LOG CHECK SCALER pump running through her left subclavian central line. Patient is on oxygen at 2L via NC, a Woodruff catheter is in place and an NG is in the left nare and is set to LIS. Patient has a colostomy in the LLQ with serosanguinous drainage. Patient has abd bandage over midline incision which is CDI; lap sites are potentially covered by abd bandage as there are supposedly 5 but only two sites are visible. The top lap site is closed with crystal, and the lower site is closed with skin glue. Vital signs are within normal limits this morning with the exception of heart rate, which is tachy and in the 110s.
[2023-12-06 07:10] LABS: INR 1.3 (0.8-3.0); PROTHROMBIN TIME 14.2 SECONDS (9.7-12.8)
[2023-12-06 07:13] LABS: PARTIAL THROMBOPLASTIN TIME 28.8 SECONDS (26.0-37.0)
[2023-12-06] MEDS ORDERED: SODIUM PHOSPHATE IV ONE (12:00)
[2023-12-06] MEDS ORDERED: [UNRECOGNIZED DRUG - OTHER] IV ONE (12:00)
[2023-12-06] MEDS ORDERED: NS IV ONE (12:00)
[2023-12-06] MEDS ORDERED: Magnesium Sulfate 4% 50 ML IV ONE (12:15)
[2023-12-06] MEDS ORDERED: Multivitamins 1 VIAL,Folic Acid 1 MG,Thiamine 200 MG in TPN (Clinimix-E 8%/14%) 1,000 ML IV SCH (16:00)
--- NOTE | 2023-12-06 20:00 | NUR ---
Pt resting quietly in bed. IV infusions running without difficulty through central line. Pt has a MACHINE ROOM OPERATOR pump in place, not complaining of pain at this time. Tachycardia and tachypnea noted, all other VSS. NG tube connected to LIS. Evening PO med given through NG tube without difficulty. Pt complained of increasing anxiety, IV ativan administered. Pt complaining of slight nausea, IV zofran administered. Pt mom at bedside and has approval to spend the night with pt. Pt does not have any other concerns at this time.
--- NOTE | 2023-12-06 21:30 | NUR ---
Abdominal dressing changed. 3 laparoscopic incisions visualized. 1 midline incision and 1 transverse incision visualized. Per shift report upon transfer to ICU this morning, pt had 5 lap sites but only 2 lap sites seen upon inspection. It was assumed remaining 3 lap sites were hidden within midline dressing. Edges well approximated on all incision sites. No drainage or edema noted.
[2023-12-07] VITALS (673 sets, daily range): BP systolic 110–117; BP diastolic 73–76; PULSE 109–131; TEMP 99.1–101.2; O2SAT 68–100
--- NOTE | 2023-12-07 | NUR ---
Pt requested to stand on the side of the bed for a few minutes. Pt able to tolerate well with help from this RN and pt mom. Pt stated that it helped her to feel better. Pt is back in bed and resting quietly.
[2023-12-07 04:37] LABS: CALCIUM 7.2 mg/dL (8.4-10.2); CREATININE, serum 0.5 mg/dL (0.57-1.11); MAGNESIUM 1.8 mg/dL (1.6-2.6); PHOSPHOROUS 2.6 mg/dL (2.3-4.7); POTASSIUM 3.5 mEq/L (3.5-4.5)
[2023-12-07] MEDS ORDERED: Potassium Chloride 100 ML IV SCH (05:00)
[2023-12-07 07:35] LABS: MEAN CELL VOLUME 83 fl (80.0-100.0); MEAN CORPUSCULAR HGB CONC 33 g/dl (33.0-37.0); MEAN PLATELET VOLUME 9.2 fl (7.4-10.4); PLATELET COUNT 303 K/mm3 (130-400); RED BLOOD COUNT 3.04 M/mm3 (4.10-5.30)
[2023-12-07 07:50] LABS: HEMATOCRIT 25.2 % (37.0-47.0); HEMOGLOBIN 8.2 g/dl (12.5-16.0); MEAN CORPUSCULAR HEMOGLOBIN 27 pg (27-31)
[2023-12-07 08:26] LABS: BAND 11 % (0-10); EOSINOPHIL 2 % (0-4); METAMYELOCYTE 5 % (0-0); NEUTROPHILS 72 % (42.0-75.2); PLATELET ESTIMATE NORMAL (NORMAL)
[2023-12-07 08:27] LABS: LYMPHOCYTE 4 % (20.0-51.0)
[2023-12-07] MEDS ORDERED: Fluconazole 400 MG/200 ML IV SOLN IV SCH (09:00)
[2023-12-07] MEDS ORDERED: Metoprolol Tartrate 5 MG/5 ML VIAL IV SCH (09:45)
--- NOTE | 2023-12-07 10:31 | NUR ---
Initial visit; Patient and her mom; Sheri thanked Wire Mesh Filter Fabricator for looking in on her. 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 She continues to have health issues that call for more attention and care. Wire Mesh Filter Fabricator suggested that she cast her worries and concerns where they belong, on God's shoulders and then we prayed for God to heal her of her physical, emotional and mental anguish over these issues. Wire Mesh Filter Fabricator spoke with nurse and let her know patient and her mom would like prayer again tomorrow and know Wire Mesh Filter Fabricator is always available.
--- NOTE | 2023-12-07 11:48 | NUR ---
key worker attended interdisciplinary clinical rounding with Dr. Choudhary. Dr. Choudhary expressed she would be looking for a facility to transfer patient to another facility. Patient's mother is working on ensuring patient's insurance is covered through the end of this month with her insurance and that patient's is able to ensure his insurance picks her up starting on the . [employer] was contacted and visited with the patient and her mother.
[2023-12-07] MEDS ORDERED: Iron Sucrose 400 MG in NS 250 ML Over 150 minutes IV ONE (12:00)
[2023-12-07] MEDS ORDERED: Multivitamins 1 VIAL,Folic Acid 1 MG,Thiamine 200 MG in TPN (Clinimix-E 8%/14%) 1,000 ML IV SCH (16:00)
--- NOTE | 2023-12-07 18:05 | NUR ---
Patient laying in bed, resting with eyes closed. PRODUCE FIELD MERCHANDISER pump infusing appropriately with ETCO2 monitoring. Blood pressure stable overnight, febrile with max of 102, heart rate of 130s, Sinus tach. Pain coverage adequate with PRODUCE FIELD MERCHANDISER and ativan for anxiety. Potassium was replaced for 3.5 with 60 mEq. Central dressing intact, clean and dry. Heparin, IV fluids, TPN, antibiotics, potassium replacement infusing without complications. Abdominal incision dressing dry, clean and intact, approximated, no drainage, crystal clean, 3 lap sites, transverse and vertical incisions noted. Overnight output through NG was significant, 375 ml of green mossy bile, measurement noted at 55 cm at the left nare. mcdonough draining yellow clear urine with satisfactory output. 12/06 at 1637, patient left EMS and shipped to [facility] in [place], [place] for additional resources and GI specialists. Report was called to [facility] for room 1403, at phone number [phone]. Patient left with a 101.2 fever, tylenol was given, Zofran and Ativan given as well before departure. Belongings gathered by family and was transported per POV to new facility.
== END 2023-12-07 16:37 | DRG 329 ==
LOC: COL.ER 15:12 → ICU 19:52 → SURG 19:52 → ICU 12-06 05:41
PROVIDERS: Emergency Medicine; Internal Medicine Sleep Medicine; Nurse Practitioner Family; Physician Assistant; Surgery; ADMIT Internal Medicine
PROC: 0D1N0Z4 Bypass Sigmoid Colon to Cutaneous, Open Approach (ICD-10-PCS; principal; 2023-11-25)
PROC: 0DBH4ZZ Excision of Cecum, Percutaneous Endoscopic Approach (ICD-10-PCS; 2023-11-25)
DX: K56.609 Unspecified intestinal obstruction, unspecified as to partial versus complete obstruction (principal); A41.9 Sepsis, unspecified organism; K65.9 Peritonitis, unspecified; R65.20 Severe sepsis without septic shock; K50.013 Crohn's disease of small intestine with fistula; E87.1 Hypo-osmolality and hyponatremia; E44.0 Moderate protein-calorie malnutrition; K52.9 Noninfective gastroenteritis and colitis, unspecified; D64.9 Anemia, unspecified; E61.1 Iron deficiency; E87.6 Hypokalemia; F41.9 Anxiety disorder, unspecified; R00.0 Tachycardia, unspecified; Z68.26 Body mass index [BMI] 26.0-26.9, adult
CPT/HCPCS: A4314; A9284; C1751; J0690; J0744; J0780; J1100; J1170; J1450; J1630; J1644; J1650; J1756; J1836; J1885; J2060; J2250; J2270; J2371; J2405; J2470; J2543; J2704; J2795; J3010; J3411; J3475; J3480; J7030; J7050; J7070; J7120; Q3014; Q9967